=== PATIENT | female | born 1985 | race African-American/Black ===

== ENCOUNTER 2019-10-04 08:48 | Emergency (ER) | payer BC ==
[2019-10-04] MEDS ORDERED: PREDNISONE 20 MG TABLET PO ONE (09:27)
[2019-10-04] MEDS ORDERED: HYDROXYCHLOROQUINE SULFATE 200 MG TABLET PO ONE (09:27)
[2019-10-04] MEDS ORDERED: NAPROXEN 250 MG TABLET PO ONE (09:43)
--- NOTE | 2019-10-04 10:23 | ER Document Report ---
Entered by JOSE VEGA SCRIBE 10/04/19 0926 Acting as scribe for:NAN LYONS MD ED General Pain - General Chief Complaint: Pain All Over Stated Complaint: BODY PAIN Time Seen by Provider: 10/04/19 09:02 Primary Care Provider: PROSPER BOONE MD [ACTIVE STAFF] - Follow up in 1 week (Call the office tomorrow to schedule an appointment.) Information source: Patient Notes: This 34 year old female with lupus presents to the emergency department today with complaints of a lupus flare for the last three weeks. Patient moved here from [place] on September 18 2019 and has not yet established with a PCP and she is out of her naproxen, hydroxychloroquine, has a few prednisone pills left, and is out of her PRN [place] which she has not filled since April. Patient does still have her enalapril and HCTZ. Patient complains of generalized joint pain, mostly in her RLE which is where her pain is normally with lupus flares. - Related Data Allergies/Adverse Reactions: No Known Allergies Allergy (Verified 10/04/19 08:59) Past Medical History - General Information source: Patient - Social History Smoking Status: Former Smoker Cigarette use (# per day): No Chew tobacco use (# tins/day): No Smoking Education Provided: No Frequency of alcohol use: None Drug Abuse: None Occupation: [employer] Lives with: Family Family History: Reviewed & Not Pertinent Patient has homicidal ideation: No - Past Medical History Cardiac Medical History: Reports: Hx Hypertension Musculoskeletal Medical History: Reports Hx Systemic Lupus Erythematosus Past Surgical History: Reports: Hx Appendectomy Review of Systems - Review of Systems Constitutional: No symptoms reported EENT: No symptoms reported Cardiovascular: No symptoms reported Respiratory: No symptoms reported Gastrointestinal: No symptoms reported Genitourinary: No symptoms reported Female Genitourinary: See HPI, Last menstrual period - September 27 Musculoskeletal: See HPI, Joint pain, Muscle pain Skin: No symptoms reported Hematologic/Lymphatic: No symptoms reported Neurological/Psychological: No symptoms reported -: Yes All other systems reviewed and negative Physical Exam - Vital signs Vitals: Temp Pulse Resp BP Pulse Ox 98.9 F 89 17 187/116 H 98 10/04/19 08:55 10/04/19 08:55 10/04/19 08:55 10/04/19 08:55 10/04/19 08:55 - Notes Notes: Physical Exam: General: Alert, appears well. HEENT: Normocephalic. Atraumatic. PERRL. Extraocular movements intact. Oropharynx clear. Neck: Supple. Non-tender. Respiratory: No respiratory distress. Clear and equal breath sounds bilaterally. Cardiovascular: Regular rate and rhythm. Abdominal: Obese. Non-tender. No distension. Normal Bowel Sounds. Back: No gross abnormalities. Extremities: Moves all four extremities. Upper extremities: Fingers are edematous. Normal ROM. Lower extremities: Pain with palpation of the right lateral hip, thigh, and leg which is normal for patient's lupus flares. Normal ROM. Neurological: Normal cognition. AAOx4. Normal speech. Psychological: Normal affect. Normal Mood. Skin: Warm. Dry. Normal color. Course - Vital Signs Vital signs: Temp Pulse Resp BP Pulse Ox 97.8 F 77 16 178/110 H 100 10/04/19 10:55 10/04/19 10:55 10/04/19 10:55 10/04/19 10:55 10/04/19 10:55 - Laboratory Result Diagrams: 10/04/19 09:53 10/04/19 09:53 Laboratory results interpreted by me: 10/04/19 10/04/19 10/04/19 09:53 09:53 09:53 WBC 3.8 L RBC 3.62 L Hgb 11.6 L Hct 35.4 L MCV 98 H Sodium 135.8 L Chloride 110 H Anion Gap 2 L Calcium 8.2 L Albumin 2.4 L Urine Protein >=500 H Urine Ascorbic Acid 40 H Discharge - Discharge Clinical Impression: Lupus (systemic lupus erythematosus) Qualifiers: Systemic lupus erythematosus type: unspecified Systemic lupus erythematosus organ involvement: unspecified Qualified Code(s): M32.9 - Systemic lupus erythematosus, unspecified High blood pressure Qualifiers: Hypertension type: essential hypertension Qualified Code(s): I10 - Essential (primary) hypertension Condition: Stable Disposition: HOME, SELF-CARE Additional Instructions: Take medications as prescribed for your lupus. Your blood pressure was elevated today. Be sure you take your blood pressure medications today. Be sure to check your blood pressure every day. I spoke with Dr. Boone, and he agrees to take you on as a new patient. Call his office tomorrow morning to schedule an appointment. RETURN TO THE EMERGENCY ROOM IF ANY NEW OR WORSENING SYMPTOMS. Prescriptions: Prednisone [Deltasone 20 mg Tablet] 20 mg PO DAILY #50 tablet Naproxen 500 mg PO TID PRN #50 tablet PRN Reason: Hydrocodone/Acetaminophen [[place] 5-325 mg Tablet] 1 tab PO ASDIR PRN #12 tablet PRN Reason: For Pain Hydroxychloroquine Sulfate [Plaquenil 200 mg Tablet] 200 mg PO BID #60 tab Forms: Return to Work Referrals: PROSPER BOONE MD [ACTIVE STAFF] - Follow up in 1 week (Call the office tomorrow to schedule an appointment.) I personally performed the services described in the documentation, reviewed and edited the documentation which was dictated to the scribe in my presence, and it accurately records my words and actions.
[2019-10-04 10:39] LABS: ABSOLUTE EOSINOPHILS # (AUTO) 0.1 10^3/uL (0.0-0.6); ABSOLUTE LYMPHOCYTES (AUTO) 0.8 10^3/uL (0.5-4.7); ABSOLUTE MONOCYTES (AUTO) 0.3 10^3/uL (0.1-1.4); ABSOLUTE NEUT (AUTO) 2.5 10^3/uL (1.7-8.2); BASOPHILS % (AUTO) 0.8 % (0-2); EOSINOPHILS % (AUTO) 2.2 % (0-6); HEMATOCRIT 35.4 % (36.0-47.0); HEMOGLOBIN 11.6 g/dL (12.0-15.5); LYMPHOCYTES % (AUTO) 22.3 % (13-45); MEAN CORPUSCULAR HEMOGLOBIN 32.1 pg (27.0-33.4); MEAN CORPUSCULAR HGB CONC 32.8 g/dL (32.0-36.0); MEAN CORPUSCULAR VOLUME 98 fl (80-97); MONOCYTES % (AUTO) 8.3 % (3-13); PLATELET COUNT 253 10^3/uL (150-450); RED BLOOD COUNT 3.62 10^6/uL (3.72-5.28); RED CELL DISTRIBUTION WIDTH 12.7 % (11.5-14.0); SEGMENTED NEUTROPHILS % (AUTO) 66.4 % (42-78); TOTAL CELLS COUNTED % (AUTO) 100 %; WHITE BLOOD COUNT 3.8 10^3/uL (4.0-10.5)
[2019-10-04 10:43] LABS: APPEARANCE,URINE SLIGHTLY-CLOUDY; BILIRUBIN,URINE NEGATIVE (NEGATIVE); COLOR,URINE YELLOW; GLUCOSE, URINE NEGATIVE (NEGATIVE); KETONES,URINE NEGATIVE (NEGATIVE); LEUKOCYTE ESTERASE,URINE NEGATIVE (NEGATIVE); NITRITE,URINE NEGATIVE (NEGATIVE); PROTEIN,URINE >=500 mg/dL (NEGATIVE); URINE SPECIFIC GRAVITY 1.023; UROBILINOGEN,URINE NEGATIVE mg/dL (<2.0)
[2019-10-04 10:56] VITALS: BP 178/110
[2019-10-04 10:58] LABS: ALBUMIN 2.4 g/dL (3.5-5.0); ALKALINE PHOSPHATASE 76 U/L (38-126); ASPARTATE AMINO TRANSFERASE 32 U/L (14-36); BILIRUBIN,TOTAL 0.3 mg/dL (0.2-1.3); BLOOD UREA NITROGEN 11 mg/dL (7-20); CALCIUM 8.2 mg/dL (8.4-10.2); CARBON DIOXIDE 24 mmol/L (22-30); GLUCOSE 85 mg/dL (75-110); POTASSIUM 4.4 mmol/L (3.6-5.0); TOTAL PROTEIN 6.8 g/dL (6.3-8.2)
[2019-10-04 11:11] LABS: ANION GAP 2 (5-19); CHLORIDE 110 mmol/L (98-107)
== END 2019-10-04 10:56 | disposition home or self-care (01) ==
LOC: ER 08:48
DX: M32.9 Systemic lupus erythematosus, unspecified (principal); I10 Essential (primary) hypertension; Z79.52 Long term (current) use of systemic steroids; Z79.899 Other long term (current) drug therapy; Z87.891 Personal history of nicotine dependence
CPT/HCPCS: 99283; 36415; 85025; 81025; 80053; 81001; J3490; J7512

== ENCOUNTER 2019-12-28 13:28 | Emergency (ER) | payer SELFPAY ==
[2019-12-28] MEDS ORDERED: HYDROCODONE/ACETAMINOPHEN 5-325 MG TABLET PO ONE (14:13)
[2019-12-28 14:15] VITALS: BP 158/112
--- NOTE | 2019-12-28 14:15 | ER Document Report ---
ED Medical Screen (RME) - General Stated Complaint: BACK PAIN/SHORTNESS OF BREATH Time Seen by Provider: 12/28/19 14:09 Mode of Arrival: Ambulatory Information source: Patient Notes: Patient presents complaining of left flank and left side pain. Patient has a history of lupus and is concerned about possible flareup. Patient denies any urinary symptoms or fever. Patient denies any nausea vomiting or diarrhea. Beatris shah spoke to her prior primary doctor when she lived out of state and he was concerned about possible kidney inflammation. I have greeted and performed a rapid initial assessment of this patient. A comprehensive ED assessment and evaluation of the patient, analysis of test results and completion of the medical decision making process will be conducted by additional ED providers. - Related Data Allergies/Adverse Reactions: No Known Allergies Allergy (Verified 10/04/19 08:59) Past Medical History - Past Medical History Cardiac Medical History: Reports: Hx Hypertension Musculoskeltal Medical History: Reports Hx Systemic Lupus Erythematosus Past Surgical History: Reports: Hx Appendectomy Physical Exam - Abdominal Tenderness: Tender - Left lateral side tenderness
[2019-12-28 14:58] LABS: APPEARANCE,URINE CLEAR; BILIRUBIN,URINE NEGATIVE (NEGATIVE); COLOR,URINE YELLOW; GLUCOSE, URINE NEGATIVE (NEGATIVE); KETONES,URINE NEGATIVE (NEGATIVE); LEUKOCYTE ESTERASE,URINE NEGATIVE (NEGATIVE); NITRITE,URINE NEGATIVE (NEGATIVE); PROTEIN,URINE >=500 mg/dL (NEGATIVE); URINE SPECIFIC GRAVITY 1.019; UROBILINOGEN,URINE NEGATIVE mg/dL (<2.0)
[2019-12-28 14:59] LABS: ABSOLUTE LYMPHOCYTES (AUTO) 0.5 10^3/uL (0.5-4.7); ABSOLUTE MONOCYTES (AUTO) 0.1 10^3/uL (0.1-1.4); ABSOLUTE NEUT (AUTO) 4.6 10^3/uL (1.7-8.2); BASOPHILS % (AUTO) 0.3 % (0-2); HEMATOCRIT 34.5 % (36.0-47.0); HEMOGLOBIN 12.1 g/dL (12.0-15.5); LYMPHOCYTES % (AUTO) 9.6 % (13-45); MEAN CORPUSCULAR HEMOGLOBIN 33.6 pg (27.0-33.4); MEAN CORPUSCULAR HGB CONC 34.9 g/dL (32.0-36.0); MEAN CORPUSCULAR VOLUME 96 fl (80-97); MONOCYTES % (AUTO) 1.4 % (3-13); PLATELET COUNT 260 10^3/uL (150-450); RED CELL DISTRIBUTION WIDTH 12.7 % (11.5-14.0); SEGMENTED NEUTROPHILS % (AUTO) 88.7 % (42-78); TOTAL CELLS COUNTED % (AUTO) 100 %; WHITE BLOOD COUNT 5.2 10^3/uL (4.0-10.5)
[2019-12-28 15:19] LABS: ALBUMIN 2.6 g/dL (3.5-5.0); ALKALINE PHOSPHATASE 85 U/L (38-126); ANION GAP 7 (5-19); ASPARTATE AMINO TRANSFERASE 24 U/L (14-36); BILIRUBIN,DIRECT 0.2 mg/dL (0.0-0.4); BILIRUBIN,TOTAL 0.3 mg/dL (0.2-1.3); BLOOD UREA NITROGEN 12 mg/dL (7-20); CALCIUM 8.5 mg/dL (8.4-10.2); CARBON DIOXIDE 21 mmol/L (22-30); CHLORIDE 108 mmol/L (98-107); GLUCOSE 125 mg/dL (75-110); POTASSIUM 4.6 mmol/L (3.6-5.0); TOTAL PROTEIN 6.8 g/dL (6.3-8.2)
== END 2019-12-28 23:00 | disposition left against medical advice (07) ==
LOC: ER 13:28
DX: R10.9 Unspecified abdominal pain (principal); R10.819 Abdominal tenderness, unspecified site; M32.9 Systemic lupus erythematosus, unspecified; I10 Essential (primary) hypertension; Z90.49 Acquired absence of other specified parts of digestive tract; Z53.20 Procedure and treatment not carried out because of patient's decision for unspecified reasons
CPT/HCPCS: 36415; 80053; 81001; 84703; 85025; 99281

== ENCOUNTER 2019-12-29 12:10 | Emergency (ER) | payer SELFPAY ==
--- NOTE | 2019-12-29 12:33 | ER Document Report ---
ED Medical Screen (RME) - General Chief Complaint: Pain All Over Stated Complaint: BODY PAIN Time Seen by Provider: 12/29/19 12:32 Mode of Arrival: Ambulatory Information source: Patient - Related Data Allergies/Adverse Reactions: No Known Allergies Allergy (Verified 12/28/19 20:38) Past Medical History - Past Medical History Cardiac Medical History: Reports: Hx Hypertension Musculoskeltal Medical History: Reports Hx Systemic Lupus Erythematosus Past Surgical History: Reports: Hx Appendectomy Physical Exam - Vital signs Vitals: Temp Pulse Resp BP Pulse Ox 98.3 F 84 16 158/128 H 100 12/29/19 12:26 12/29/19 12:26 12/29/19 12:26 12/29/19 12:26 12/29/19 12:26 Course - Vital Signs Vital signs: Temp Pulse Resp BP Pulse Ox 98.3 F 84 16 158/128 H 100 12/29/19 12:26 12/29/19 12:26 12/29/19 12:26 12/29/19 12:26 12/29/19 12:26
--- NOTE | 2019-12-29 12:51 | ER Document Report ---
ED General - General Chief Complaint: Pain All Over Stated Complaint: BODY PAIN Time Seen by Provider: 12/29/19 12:32 Mode of Arrival: Ambulatory Information source: Patient Notes: 34-year-old female presents to ED for complaint of relapse of lupus. She states that she has run out of her Plaquenil naproxen and prednisone. She states she was taking [place] also for her lupus when she was at her previous provider but she has now moved to [place] and he no longer prescribes her medications due to her being in [place] since August. She states she is trying to get a new chief of field operations and she has talked to a Dr. Benitez in [facility]. She states she is getting an appointment with him to follow-up and get all of her meds renewed filled from now on. I did discuss with her that she needed to get an appointment before the set of prescriptions ran out I have given her 30-day supply of these medications and she will need to see him before these run out. She did agree with this plan. Constitutional: Negative for fever. HENT: Negative for sore throat. Eyes: Negative for visual changes. Cardiovascular: Negative for chest pain. Respiratory: Negative for shortness of breath. Gastrointestinal: Negative for abdominal pain, vomiting or diarrhea. Genitourinary: Negative for dysuria. Musculoskeletal: Negative for back pain. Skin: Negative for rash. Neurological: Patient states she is having her normal pain all over from her lupus. She is not having any new symptoms. She is not short of breath. She is out of her prednisone Plaquenil and naproxen and needs these medications refilled 10 point ROS negative except as marked above and in HPI. VITAL SIGNS: Within normal limits. GENERAL: Patient states she is having the general body pain that she always has when she has a lupus flareup. She is is tender to palpation to multiple areas due to the lupus HEAD: Normal with no signs of head trauma. EYES: PERRLA, EOMI, conjunctiva normal, no discharge. EARS: Hearing grossly intact. NOSE: Normal. THROAT: Oropharynx is normal. NECK: Normal range of motion, no tenderness, supple, no lymphadenopathy, No adenopathy, no JVD. CHEST: Clear breath sounds bilaterally. No wheezes, rales, or rhonchi. CARDIAC: Regular rate and rhythm. S1 and S2, without murmurs, gallops, or rubs. VASCULAR: No Edema. Peripheral pulses normal and equal in all extremities. ABDOMEN: Normal and soft with no tenderness, no masses or pulsatile masses. GASTROINTESTINAL: Bowel sounds normal GENITOURINARY: Normal, No tenderness LYMPATHTIC: No lymphadenopathy noted. MUSCULOSKELETAL: Good range of motion of all major joints. Extremities without clubbing, cyanosis or edema. NEUROLOGICAL: Alert and oriented x 3. No focal sensory or strength deficits. Speech normal. Follows commands appropriately. PSYCHIATRIC: Normal Affect, judgement and mood. SKIN: Normal appearance with no rashes or lesions. - HPI Onset: Other - Chronic Onset/Duration: Persistent Severity: Moderate Pain Level: 3 Associated symptoms: None Exacerbated by: Denies Relieved by: Denies Similar symptoms previously: Yes Recently seen / treated by doctor: Yes - Related Data Allergies/Adverse Reactions: No Known Allergies Allergy (Verified 12/28/19 20:38) Past Medical History - General Information source: Patient Last Menstrual Period: 12/28/2019 - Social History Smoking Status: Former Smoker Frequency of alcohol use: None Drug Abuse: None Family History: Reviewed & Not Pertinent Patient has suicidal ideation: No Patient has homicidal ideation: No - Past Medical History Cardiac Medical History: Reports: Hx Hypertension Pulmonary Medical History: Reports: None EENT Medical History: Reports: None Neurological Medical History: Reports: None Endocrine Medical History: Reports: None Renal/ Medical History: Reports: Other - Lupus Malignancy Medical History: Reports: None GI Medical History: Reports: None Musculoskeletal Medical History: Reports Hx Systemic Lupus Erythematosus Skin Medical History: Reports None Psychiatric Medical History: Reports: None Traumatic Medical History: Reports: None Infectious Medical History: Reports: None Past Surgical History: Reports: Hx Appendectomy Physical Exam - Vital signs Vitals: Temp Pulse Resp BP Pulse Ox 98.3 F 84 16 158/128 H 100 12/29/19 12:26 12/29/19 12:26 12/29/19 12:26 12/29/19 12:26 12/29/19 12:26 Course - Re-evaluation Re-evalutation: 12/29/19 13:15 I have discussed with Dr. Crane the fact that the patient needs refills of Plaquenil 200 mg twice daily naproxen 500 mg twice daily as needed and prednisone 20 mg daily. He stated to give her another month's prescription as she stated she would be able to follow-up with a chief of field operations in [place]. I have given patient 30-day supplies of each of these 3 medications. I did offer her a Toradol shot in the emergency room but she states she is already taking 500 mg of naproxen [id number] this morning about 9 or 10:00 for her pain. He was discharged home with prescriptions for these 3 medications. Patient verbalized understanding and agreement with this treatment plan. - Vital Signs Vital signs: Temp Pulse Resp BP Pulse Ox 98.3 F 84 16 153/98 H 100 12/29/19 12:26 12/29/19 12:26 12/29/19 12:26 12/29/19 12:35 12/29/19 12:26 Discharge - Discharge Clinical Impression: Lupus, Medication refill Condition: Stable Disposition: HOME, SELF-CARE Additional Instructions: You were seen today for med refills for your Plaquenil 200 mg twice daily, naproxen 500 mg twice daily, and prednisone 20 mg daily. You take these for your lupus. We have discussed that you need to follow-up with your primary care within the next 2 weeks I will refill these 1 month but after that I have discussed with the director you need to get a primary care doctor to continue filling these medications. It is very important that you find and keep your appointment with your primary care that you have discussed with me. States you have located a chief of field operations in [facility]. Dr. Luis Benitez. Be sure to call him today to schedule an appointment so you will have refills before these medications run out. And on these medications for an extended period of time so you know what each of these medications do. I have given you a written report of your labs that you had yesterday as well as your vital signs from today. Please take these with you to your doctor's appointment. FOLLOW-UP CARE: If you have been referred to a physician for follow-up care, call the physicians office for an appointment as you were instructed or within the next two days. If you experience worsening or a significant change in your symptoms, notify the physician immediately or return to the Emergency Department at any time for re-evaluation. Prescriptions: Prednisone [Deltasone 20 mg Tablet] 20 mg PO DAILY #30 tablet Naproxen 500 mg PO BIDP PRN #60 tablet PRN Reason: For Pain Hydroxychloroquine Sulfate [Plaquenil 200 mg Tablet] 200 mg PO BID #60 tab Forms: Elevated Blood Pressure, Return to Work
[2019-12-29 13:19] VITALS: BP 162/97
== END 2019-12-29 13:14 | disposition home or self-care (01) ==
LOC: ER 12:10
DX: Z76.0 Encounter for issue of repeat prescription (principal); M32.9 Systemic lupus erythematosus, unspecified; M79.10 Myalgia, unspecified site; Z79.899 Other long term (current) drug therapy; Z87.891 Personal history of nicotine dependence
CPT/HCPCS: 99283